=== PATIENT | male | born 1960 | race Caucasian/White ===

== ENCOUNTER 2021-03-17 10:44 | Inpatient (IN) | payer OTHER ==
[~2021-03-17] VITALS: Ht 172.7 cm; Wt 90.7 kg
[2021-03-17] MEDS ORDERED: AVAPRO300 MG PO (10:54)
[2021-03-17] MEDS ORDERED: DISOPYRAMIDE P100 MG PO (10:55)
[2021-03-17] MEDS ORDERED: TAMS0.4C PO (10:55)
[2021-03-17] MEDS ORDERED: [UNRECOGNIZED DRUG - OTHER] (10:56)
[2021-03-17] MEDS ORDERED: GLIPIZIDE XL10 MG PO (10:57)
[2021-03-17] MEDS ORDERED: ZOCOR20 MG (10:58)
--- NOTE | 2021-03-17 10:58 | NUR ---
PTE REFIERE DOLOR Y INFLAMACION EN EL TESTICULO DERECHO DESDE HACE 3 PEREA.
[2021-03-18] MEDS ORDERED: NISOLDIPINE8.5 MG (11:11)
[2021-03-18] MEDS ORDERED: OXYBUTYNIN CHLO10 MG (11:12)
== END 2021-03-23 16:22 | disposition home or self-care (01) | DRG 728 ==
LOC: ER 10:44 → MEDJ 22:10
PROVIDERS: ADMIT Internal Medicine; ATTEND Internal Medicine
PROC: BV44ZZZ Ultrasonography of Scrotum (ICD-10-PCS; principal; 2021-03-17)
PROC: BW21YZZ Computerized Tomography (CT Scan) of Abdomen and Pelvis using Other Contrast (ICD-10-PCS; 2021-03-17)
DX: N45.3 Epididymo-orchitis (principal); E78.49 Other hyperlipidemia; N35.816 Other urethral stricture, male, overlapping sites; I10 Essential (primary) hypertension; E11.9 Type 2 diabetes mellitus without complications; Z79.4 Long term (current) use of insulin; Z20.822 Contact with and (suspected) exposure to COVID-19

== ENCOUNTER 2021-04-02 14:53 | Emergency (ER) | payer OTHER ==
[~2021-04-02] VITALS: Ht 182.9 cm; Wt 105.7 kg
[~2021-04-02 14:53] MED LIST: AVAPRO300 MG PO; DISOPYRAMIDE P100 MG PO; GLIPIZIDE XL10 MG PO; NISOLDIPINE8.5 MG; OXYBUTYNIN CHLO10 MG; TAMS0.4C PO; ZOCOR20 MG; [UNRECOGNIZED DRUG - OTHER]
== END 2021-04-03 08:04 | disposition home or self-care (01) ==
LOC: ER 14:53
DX: N39.0 Urinary tract infection, site not specified (principal)